=== PATIENT | female | born 2000 | race Caucasian/White ===

== ENCOUNTER 2020-04-05 12:57 | Emergency (ER) | payer BC ==
[2020-04-05 13:05] VITALS: BP 102/84
--- NOTE | 2020-04-05 13:11 | ER Document Report ---
ED Wound - General Stated Complaint: LACERATION Time Seen by Provider: 04/05/20 13:03 Mode of Arrival: Ambulatory Information source: Patient Notes: Patient is a 19-year-old female comes emergency room complaining of having a laceration to her left forearm. Patient states she was attempting to cut her belt and got her mid left forearm in the way of the scissors. She has a small laceration and she does not know if it needs sutures not so she came to the ER for reevaluation. Patient denies any other medical problems. She does not smoke drink or do drugs. She is a member [employer]. Patient states her tetanus shot is up-to-date she is 19 and in the [employer]. - HPI Patient complains to provider of: Laceration Occurred: Just prior to arrival Onset/Duration: Sudden Quality of pain: No pain Severity: Mild Pain Level: 1 Context: Injury Skin Temperature: Warm Skin Color: Normal - Related Data Allergies/Adverse Reactions: No Known Allergies Allergy (Verified 04/05/20 13:06) Past Medical History - General Information source: Patient - Social History Smoking Status: Never Smoker Cigarette use (# per day): No Chew tobacco use (# tins/day): No Smoking Education Provided: No Frequency of alcohol use: None Drug Abuse: None Lives with: Family Family History: Reviewed & Not Pertinent Review of Systems - Review of Systems Constitutional: No symptoms reported EENT: No symptoms reported Cardiovascular: No symptoms reported Respiratory: No symptoms reported Gastrointestinal: No symptoms reported Genitourinary: No symptoms reported Female Genitourinary: No symptoms reported Musculoskeletal: No symptoms reported Skin: See HPI, Other - Small laceration Hematologic/Lymphatic: No symptoms reported Neurological/Psychological: No symptoms reported -: Yes All other systems reviewed and negative Physical Exam - Vital signs Vitals: Temp Pulse Resp BP Pulse Ox 98.2 F 70 16 102/84 98 04/05/20 13:05 04/05/20 13:05 04/05/20 13:05 04/05/20 13:05 04/05/20 13:05 Interpretation: Normal - Notes Notes: PHYSICAL EXAMINATION: GENERAL: Well-appearing, well-nourished and in no acute distress. HEAD: Atraumatic, normocephalic. LUNGS: Breath sounds clear to auscultation bilaterally and equal. No wheezes rales or rhonchi. HEART: Regular rate and rhythm without murmurs Musculoskeletal: Normal range of motion, no pitting or edema. No cyanosis. NEUROLOGICAL: . Normal speech, normal gait. Normal sensory, motor exams PSYCH: Normal mood, normal affect. SKIN: Examination patient's area concern is her left forearm palmar side shows a 1 cm linear laceration very superficial but just into the vascular bed slight flap to it at this point. Not deep at all. Bleeding is controlled currently. Course - Re-evaluation Re-evalutation: 04/05/20 13:21 I decided to go ahead and use the tissue glue off all the edges together and approximate them as much as possible still a slight gap at the 2 margins however it did come together relatively well. There is a small area the patient avulsed the dermis so that is nothing to cover him but should heal really well. Since I have glued this I have informed patient I am going to write her prescription for antibiotics I have explained to her that even though it was cleaned very well by her tech that if it starts to get red or inflamed she is to start the antibiotic since we are closing up the wound and the reason is that the glue covers the entire wound not letting it to ooze at all if it needs to. Patient understands this and will get the antibiotic if needed and will return to ER if should it appear to be infected. - Vital Signs Vital signs: Temp Pulse Resp BP Pulse Ox 98.2 F 70 16 102/84 98 04/05/20 13:05 04/05/20 13:05 04/05/20 13:05 04/05/20 13:05 04/05/20 13:05 Procedures - Laceration/Wound Repair Left Volar Arm Time completed: 13:25 Wound length (cm): 1.2 Wound's Depth, Shape: Linear, Flap Laceration pre-procedure: Sterile PPE donned, Betadine prep applied Anesthetic type: Other - No anesthesia Wound explored: Clean Irrigated w/ Saline (mLs): 100 Wound Debrided: Minimal Wound Repaired With: Dermabond Post-procedure NV exam normal: Yes Complications: No Discharge - Discharge Clinical Impression: Laceration of left forearm without complication Qualifiers: Encounter type: initial encounter Qualified Code(s): S51.812A - Laceration without foreign body of left forearm, initial encounter Disposition: HOME, SELF-CARE Instructions: Laceration Care ([facility]) Additional Instructions: As we discussed using glue you do not have any restrictions you can take a shower or swim in a pool or ocean does not matter at this time. Do not pick at it to take it off it will dissolve on its own. If you like you may place a Band-Aid over top of it just to stop it from hitting things. As we discussed since we use glue and cover the wound it does not have the option to lose out around it since it was very clean type of cut and we scrubbed it here chances of infection are very slim however if you notice any increasing redness or discolorations I am writing you an antibiotic to start and then return to ER for reevaluation. Prescriptions: Cephalexin Monohydrate [Keflex 500 mg Capsule] 500 mg PO Q6H 5 Days #28 capsule Referrals: [facility] [Provider Group] - Follow up as needed
== END 2020-04-05 13:33 | disposition home or self-care (01) ==
LOC: ER 12:57
DX: S51.812A Laceration without foreign body of left forearm, initial encounter (principal); W27.2XXA Contact with scissors, initial encounter
CPT/HCPCS: 99283